=== PATIENT | female | born 1985 | race Caucasian/White ===

== ENCOUNTER 2016-09-09 20:29 | Emergency (ER) | payer OTHER ==
[~2016-09-09] VITALS: Ht 172.7 cm; Wt 60.0 kg
--- NOTE | 2016-09-09 21:12 | PD ---
HPI Chief Complaint: psychiatric evaluation Time Seen by Provider: 21:11 Travel History International Travel<30 days: No Contact w/Intl Traveler<30days: No History of Present Illness HPI Patient comes in for psychiatric evaluation after making statements of wanting to harm herself. Patient states that she was trying to get into rehabilitation however after getting all packed up and found that she needed 5 thousand dollars which she does not have is just wanting to live anymore. Patient only medical concern cellulitis on her left face that began person 4 days ago. Patient states she was seen at different hospital for this and was given a prescription for antibiotics and she has not been able to get filled. Denies any known fevers, nausea, vomiting, chest pain, neck pain, , or headache. Patient describes pain is throbbing like in nature without radiation. Pain is worse with palpation, talking, and chewing. Patient reports she has been using Dilaudid the past couple of days for the pain. Denies any drainage from this or previous episodes like this. PFSH Past Medical History Medical History: Denies Significant Hx Social History Alcohol Use: No Tobacco Use: Yes Substance Use: Yes Allergies-Medications (Allergen,Severity, Reaction): Coded Allergies: Vancomycin (Unverified Allergy, Mild, 09/09/16) Review of Systems Except as stated in HPI: all other systems reviewed are Neg Physical Exam Narrative GENERAL: Well-developed, well nourished, in no acute distress, and non-ill appearing. SKIN: Focused skin assessment warm and dry. Patient is an area cellulitis over left mandible is tender to palpation. It is indurated without fluctuation or crepitus. There is no drainage, however there is a scabbed over lesion noted.. HEAD: Atraumatic. Normocephalic. EYES: Pupils equal and round. EOMI. No scleral icterus. No injection or drainage. ENT: No nasal bleeding or discharge. Mucous membranes pink and moist. Floor the mouth, submandibular, submental are all soft palpation NECK: Trachea midline. No cervical lymphadenopathy. Supple. No nuclear rigidity. CARDIOVASCULAR: Regular rate and rhythm. No murmur appreciated. RESPIRATORY: No accessory muscle use. No respiratory distress. Clear to auscultation. Breath sounds equal bilaterally. MUSCULOSKELETAL: No obvious deformities. No clubbing. No cyanosis. No edema. Full range of motion. NEUROLOGICAL: Awake and alert. No obvious cranial nerve deficits. Motor grossly within normal limits. Normal speech. PSYCHIATRIC: Appropriate mood and affect. Data Data Last Documented VS Vital Signs Date Time Temp Pulse Resp B/P Pulse Ox O2 Delivery O2 Flow Rate FiO2 09/09/16 21:58 97.9 88 14 109/56 96 Room Air Orders Complete Blood Count With Diff (09/09/16 20:38) Comprehensive Metabolic Panel (09/09/16 20:38) Ed Urine Pregnancytest Poc (09/09/16 20:38) Psych Screen (09/09/16 20:38) Drug Screen, Random Urine (09/09/16 20:38) Alcohol (Ethanol) (09/09/16 20:38) Salicylates (Aspirin) (09/09/16 20:38) Tylenol (Acetaminophen) (09/09/16 20:38) Sulfamet-Trimeth Ds 800-160 Mg (Bactrim (09/09/16 21:15) Cephalexin (Keflex) (09/09/16 21:15) Naproxen (Naprosyn) (09/09/16 22:15) Ct Soft Tiss Neck W Iv Cont (09/09/16 ) Ct Facial Bones W Iv Contrast (09/09/16 ) Iv Access Insert/Monitor (09/09/16 22:50) MDM Medical Decision Making Medical Screen Exam Complete: Yes Emergency Medical Condition: Yes Differential Diagnosis Abscess, cellulitis, parotiditis, other Narrative Course Patient was seen and examined. Initial laboratory radiological studies were ordered. Patient was signed out to Dr. Holley. Please see her documentation for final diagnosis and disposition. Grant Bello Sep 09, 2016 21:12
[2016-09-09] MEDS ORDERED: SULFAMETHOXAZOLE-TRIMETHOPRIM DS 800-160 MG TAB PO ONE (21:15)
[2016-09-09] MEDS ORDERED: CEPHALEXIN MONOHYDRATE 500 MG CAP PO ONE (21:15)
[2016-09-09 21:52] VITALS: BP 106/78; PULSE 86; RESP 18; TEMP 97.6; O2SAT 99
[2016-09-09 21:58] VITALS: BP 109/56; PULSE 88; RESP 14; TEMP 97.9; O2SAT 96
[2016-09-09] MEDS ORDERED: NAPROXEN 500 MG TAB PO ONE (22:15)
[2016-09-09 23:19] LABS: AUTOMATED NEUTROPHIL # 4.5 TH/MM3 (1.8-7.7); BASOPHIL % 0.5 % (0.0-2.0); EOSINOPHIL # 0.4 TH/MM3 (0-0.4); EOSINOPHIL % 4.2 % (0.0-4.0); HEMATOCRIT 32.2 % (35.0-46.0); HEMO FLAGS DIFF FINAL; LYMPH % 38.9 % (9.0-44.0); LYMPHOCYTE # 3.6 TH/MM3 (1.0-4.8); MEAN CELL VOLUME 87.4 FL (80.0-100.0); MEAN CORPUSCULAR HEMOGLOBIN 30.2 PG (27.0-34.0); MEAN CORPUSCULAR HGB CONC 34.6 % (32.0-36.0); MONO % 7.5 % (0.0-8.0); NEUT % 48.9 % (16.0-70.0); PLATELET COUNT 231 TH/MM3 (150-450); RED BLOOD COUNT 3.69 MIL/MM3 (4.00-5.30); RED CELL DISTRIBUTION WIDTH 13.9 % (11.6-17.2); WHITE BLOOD COUNT 9.3 TH/MM3 (4.0-11.0)
[2016-09-09 23:45] LABS: AMPHETAMINE, URINE POS (NEG); BARBITURATES, URINE NEG (NEG); COCAINE, URINE POS (NEG)
[2016-09-10 00:05] LABS: ALT (GPT) 15 U/L (10-53); ANION GAP 8 MEQ/L (5-15); AST (GOT) 15 U/L (15-37); BICARBONATE 30.2 MEQ/L (21.0-32.0); BLOOD UREA NITROGEN 7 MG/DL (7-18); CHLORIDE 101 MEQ/L (98-107); GLOMERULAR FILTRATION RATE 73 ML/MIN (>89); SODIUM (NA) 139 MEQ/L (136-145)
[2016-09-10 00:07] LABS: ACETAMINOPHEN LESS THAN 2.0 MCG/ML (10.0-30.0); ALKALINE PHOSPHATASE 67 U/L (45-117); TOTAL BILIRUBIN ADULT 0.4 MG/DL (0.2-1.0)
[2016-09-10] MEDS ORDERED: IOHEXOL 350 MG/ML 10 ML VIAL (for RAD DIAG) IV ONE (00:33)
--- NOTE | 2016-09-10 00:55 | RADRPT ---
EXAM DATE/TIME: 09/10/2016 00:20 [facility] COMPARISON: No previous studies available for comparison. INDICATIONS : Left perimandibular swelling; possible abscess. IV CONTRAST: 72 cc Omnipaque 350 (iohexol) IV RADIATION DOSE: 21.96 CTDIvol (mGy) MEDICAL HISTORY : None SURGICAL HISTORY : None. ENCOUNTER: Initial ACUITY: 1 day PAIN SCALE: 7/10 LOCATION: facial TECHNIQUE: Volumetric scanning of the facial bones was performed. Using automated exposure control and adjustme nt of the mA and/or kV according to patient size, radiation dose was kept as low as reasonably achiev able to obtain optimal diagnostic quality images. FINDINGS: There is soft tissue swelling seen superficially at the left side of the face extending from the infe rior aspect of the tear down to the angle of the mandible. This extends over a 4.4 cm AP dimension, 1 .7 her transverse dimension and 5.5 cm length. This is fluid density. This is likely phlegmon. A well -formed abscess wall is not clearly seen at this time. Near the superior aspect of this area there ar e some rounded areas forming. The inflammatory change abuts the lateral aspect of the left parotid. T he left parotid appears to enhance more than the right side. There is some heterogeneity in the left parotid gland which can suggest inflammation in this region. There is adenopathy in the left digastri c region and anterior triangle. ORBITS: The orbital and infraorbital osseous structures are intact. The retroconal structures have a normal configuration. No radiopaque foreign bodies are seen. NASAL BONE: The nasal bone and maxillary spine are intact ZYGOMATIC ARCHES: Symmetric without evidence of fracture. SINUSES: The maxillary, ethmoid and frontal sinuses are intact. No air-fluid levels seen. NASAL CAVITY: The nasal septum is intact and midline. The lacrimal ducts are intact. INTRACRANIAL: No intracranial air seen. CRIBIFORM PLATE: Grossly intact. CONCLUSION: Prominent superficial inflammatory change the left side of the face abutting the left parotid gland. A well-formed abscess cavity is not currently seen suggesting most of this is phlegmon. Involvement o f the left parotid gland needs to be suspected. There is left-sided adenopathy. Carlos Nails MD on September 10, 2016 at 0:39 Board Certified Radiologist. This report was verified electronically.
[2016-09-10] MEDS ORDERED: CEPH-460 PO (04:12)
[2016-09-10] MEDS ORDERED: BACT800T5 PO (04:12)
--- NOTE | 2016-09-10 04:12 | PD ---
Data Data Last Documented VS Vital Signs Date Time Temp Pulse Resp B/P Pulse Ox O2 Delivery O2 Flow Rate FiO2 09/09/16 21:58 97.9 88 14 109/56 96 Room Air Orders Complete Blood Count With Diff (09/09/16 20:38) Comprehensive Metabolic Panel (09/09/16 20:38) Ed Urine Pregnancytest Poc (09/09/16 20:38) Psych Screen (09/09/16 20:38) Drug Screen, Random Urine (09/09/16 20:38) Alcohol (Ethanol) (09/09/16 20:38) Salicylates (Aspirin) (09/09/16 20:38) Tylenol (Acetaminophen) (09/09/16 20:38) Sulfamet-Trimeth Ds 800-160 Mg (Bactrim (09/09/16 21:15) Cephalexin (Keflex) (09/09/16 21:15) Naproxen (Naprosyn) (09/09/16 22:15) Ct Facial Bones W Iv Contrast (09/09/16 ) Iv Access Insert/Monitor (09/09/16 22:50) Iohexol 350 Inj (Omnipaque 350 Inj) (09/10/16 00:33) Labs Laboratory Tests Test 09/09/16 23:00 White Blood Count 9.3 TH/MM3 Red Blood Count 3.69 MIL/MM3 Hemoglobin 11.1 GM/DL Hematocrit 32.2 % Mean Corpuscular Volume 87.4 FL Mean Corpuscular Hemoglobin 30.2 PG Mean Corpuscular Hemoglobin 34.6 % Concent Red Cell Distribution Width 13.9 % Platelet Count 231 TH/MM3 Mean Platelet Volume 8.5 FL Neutrophils (%) (Auto) 48.9 % Lymphocytes (%) (Auto) 38.9 % Monocytes (%) (Auto) 7.5 % Eosinophils (%) (Auto) 4.2 % Basophils (%) (Auto) 0.5 % Neutrophils # (Auto) 4.5 TH/MM3 Lymphocytes # (Auto) 3.6 TH/MM3 Monocytes # (Auto) 0.7 TH/MM3 Eosinophils # (Auto) 0.4 TH/MM3 Basophils # (Auto) 0.0 TH/MM3 CBC Comment DIFF FINAL Differential Comment Urine Opiates Screen POS Urine Barbiturates Screen NEG Urine Amphetamines Screen POS Urine Benzodiazepines Screen POS Urine Cocaine Screen POS Urine Cannabinoids Screen NEG Sodium Level 139 MEQ/L Potassium Level 3.0 MEQ/L Chloride Level 101 MEQ/L Carbon Dioxide Level 30.2 MEQ/L Anion Gap 8 MEQ/L Blood Urea Nitrogen 7 MG/DL Creatinine 0.90 MG/DL Estimat Glomerular Filtration 73 ML/MIN Rate Random Glucose 89 MG/DL Calcium Level 8.8 MG/DL Total Bilirubin 0.4 MG/DL Aspartate Amino Transf 15 U/L (AST/SGOT) Alanine Aminotransferase 15 U/L (ALT/SGPT) Alkaline Phosphatase 67 U/L Total Protein 7.0 GM/DL Albumin 3.2 GM/DL Salicylates Level 3.6 MG/DL Acetaminophen Level LESS THAN 2.0 MCG/ML Ethyl Alcohol Level LESS THAN 3 MG/DL MDM Supervised Visit with AUGUST: Yes Narrative Course The history, exam, and medical decision-making in the associated midlevel provider note were completed with my assistance. I reviewed and agree with the findings presented. I attest that I had a [id number] encounter with the patient on the same day, and personally performed and documented my assessment and findings in the medical record. *My assessment and Findings: This is a 31-year-old female who presents to the emergency department with depression requesting to see a psychiatrist. Additionally she has swelling and pain involving the left side of her face. She has an indurated area along the left cheek extending down to the left mandible. Labs are obtained which are reassuring with no leukocytosis. The patient is afebrile. CT imaging was obtained which demonstrates inflammatory changes in the left side of the face abutting the left parotid gland without a distinct abscess cavity. Patient was given Keflex and Bactrim. I think she can be discharged with continued warm compresses and oral antibiotics. Patient will be observed for psychiatry this morning. If she is admitted as an inpatient then medical consultation can be obtained for continued antibiotic therapy. Diagnosis Primary Impression: Facial cellulitis Patient Instructions: General Instructions Additional Instruction: If you develop fever, increasing redness, warmth, or spreading of your infection , or severe pain return to the emergency department immediately as you may require antibiotics through your IV. Complete your course of antibiotics as prescribed. Med/Other Pt SpecificInfo: Prescription(s) given Scripts Cephalexin (Keflex)500 Mg [id number] Mg PO Q12H 10 Days Ref 0 Prov:Scarlett Holley MD 09/10/16 Sulfamethoxazole-Trimethoprim (Bactrim DS)800-160 Mg Tab1 Tab PO BID 10 Days Prov:Scarlett Holley MD 09/10/16 Scarlett Holley MD Sep 10, 2016 04:12
[2016-09-10 06:35] VITALS: BP 100/55; PULSE 65; RESP 12; O2SAT 98
[2016-09-10 08:00] VITALS: BP 121/78; PULSE 77; RESP 16; TEMP 98; O2SAT 99
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
== END 2016-09-10 13:09 | disposition home or self-care (01) ==
LOC: NEPB 20:29
DX: L03.211 Cellulitis of face (principal); F43.25 Adjustment disorder with mixed disturbance of emotions and conduct; F19.10 Other psychoactive substance abuse, uncomplicated; Z72.0 Tobacco use
CPT/HCPCS: 70487; 80053; 80307; 84703; 85025; 99284; Q9967